=== PATIENT | male | born 1960 | race Asian ===

== ENCOUNTER 2017-11-12 11:32 | Day surgery (SDC) | payer OTHER ==
[2017-11-12] MEDS ORDERED: hydrALAzine 20 MG INJ (13:27)
[2017-11-12 13:58] LABS: POTASSIUM 4.4 mmol/L (3.5-5.1)
[2017-11-12] MEDS ORDERED: LIDOCAINE 2% (SDV) 5 ML INJ (14:15)
[2017-11-12] MEDS ORDERED: PROPOFOL 20 ML (14:15)
== END 2017-11-12 15:33 | disposition home or self-care (01) ==
LOC: GIL 11:32
DX: K21.0 Gastro-esophageal reflux disease with esophagitis (principal); K44.9 Diaphragmatic hernia without obstruction or gangrene; K29.60 Other gastritis without bleeding; K29.80 Duodenitis without bleeding; E11.9 Type 2 diabetes mellitus without complications; E78.5 Hyperlipidemia, unspecified; I50.9 Heart failure, unspecified; I12.9 Hypertensive chronic kidney disease with stage 1 through stage 4 chronic kidney disease, or unspecified chronic kidney disease; N18.9 Chronic kidney disease, unspecified
CPT/HCPCS: 43235; 82962; 84132